=== PATIENT | male | born 1980 | race Caucasian/White ===

== ENCOUNTER 2020-02-27 06:34 | Emergency (ER) | payer BC ==
[~2020-02-27] VITALS: Ht 167.6 cm; Wt 79.4 kg
[2020-02-27 06:38] VITALS: BP 167/96
--- NOTE | 2020-02-27 06:49 | NUR ---
39 Y/O MALE C/O SINCE LAST NIGHT FELT CONSTANT MID STERNAL CHEST PRESSURE PAIN 10/17; NO OTC MEDS TAKE PRIOR TO ED ARRIVAL; SUBJECTIVE SOB; -N/V/D; BS 290 PMH: DM/HTN/HIGH CHOLESTEROL NKA
--- NOTE | 2020-02-27 06:49 | NUR ---
PT AMBULATED TO BED 7 WITH STEADY GAIT
--- NOTE | 2020-02-27 07:00 | NUR ---
EKG PERFORMED AT BEDSIDE
--- NOTE | 2020-02-27 07:01 | NUR ---
EMT AT BEDSIDE DOING EKG
--- NOTE | 2020-02-27 07:07 | NUR ---
Pt report given to italo yang. Transfer of care at this time.
[2020-02-27 07:55] VITALS: BP 153/96
--- NOTE | 2020-02-27 07:55 | NUR ---
Patient discharged with v/s stable. Written and verbal after care instructions given and explained regarding nonspecific cp. Patient alert, oriented and verbalized understanding of instructions. Ambulatory with steady gait. All questions addressed prior to discharge. ID band removed. Patient advised to follow up with PMD. Rx of motrin given. Patient educated on indication of medication including possible reaction and side effects. Opportunity to ask questions provided and answered. pt instructed that ekg was wnl
== END 2020-02-27 07:55 | disposition home or self-care (01) ==
LOC: MED 06:34
DX: R07.9 Chest pain, unspecified (principal); E11.9 Type 2 diabetes mellitus without complications; I10 Essential (primary) hypertension; E78.00 Pure hypercholesterolemia, unspecified
CPT/HCPCS: 93005; 99283

== ENCOUNTER 2021-10-18 13:23 | Emergency (ER) | payer SELFPAY ==
[~2021-10-18] VITALS: Ht 167.6 cm; Wt 81.6 kg
[2021-10-18 13:26] VITALS: BP 175/120
[2021-10-18] MEDS ORDERED: ENALAPRILAT 2.5 MG/2 ML VIAL IVP ONE (13:30)
[2021-10-18] MEDS ORDERED: NACL 0.9% 1,000 ML IV ONE (13:30)
--- NOTE | 2021-10-18 13:42 | NUR ---
Patient ambulated, handcuffed, accompanied by PD to bed 04.
--- NOTE | 2021-10-18 13:52 | NUR ---
41yo m bib [place] [facility] c/o elevated bp and hyperglycemia. Patient A&Ox4, ambulatory, reports feeling tired, denies any other symptoms. Denies dysuria, urinary symptoms, abdominal pain, dizziness, blurry vision, headache. Pt states that he last took his lisinopril yesterday and lantus 2 days ago. Denies medications prior to arrival. Bed locked in lowest position, side rails x 2. bs in triage: 407 pmh: hypothyroidism, htn, dm meds: levothyroxine, lisinopril, lantus nka
[2021-10-18 14:08] VITALS: BP 118/82
--- NOTE | 2021-10-18 14:09 | NUR ---
BP 119/82 [facility] 341; Dr. Pacheco made aware; OK to discharge to PD.
--- NOTE | 2021-10-18 14:10 | NUR ---
Patient discharged with v/s stable. Written and verbal after care instructions given and explained. Patient verbalized understanding. Ambulatory with steady gait accompanied by Customer Care Professional. All questions addressed prior to discharge. Advised to follow up with PMD.
== END 2021-10-18 14:10 ==
LOC: MED 13:23
DX: I10 Essential (primary) hypertension (principal); E11.65 Type 2 diabetes mellitus with hyperglycemia; Z02.89 Encounter for other administrative examinations
CPT/HCPCS: 96361; 96374; 99283; J3490; J7030

== ENCOUNTER 2024-05-06 10:16 | Emergency (ER) | payer BC ==
[~2024-05-06] VITALS: Ht 167.6 cm; Wt 82.6 kg
[2024-05-06 10:28] VITALS: BP 162/96; PULSE 63; RESP 16; TEMP 98.3; O2SAT 94
[2024-05-06 11:00] VITALS: O2SAT 94
[2024-05-06] MEDS: ONDANSETRON 4 MG/2 ML VIAL IVP ONE (11:07)
[2024-05-06 11:26] LABS: BASOPHILS % (AUTO) 0.5 % (0.0-2.0); EOSINOPHILS # (AUTO) 0.1 K/uL (0-0.4); EOSINOPHILS % (AUTO) 1.3 % (0.0-4.0); HEMATOCRIT 38.9 % (36-52); HEMOGLOBIN 13.1 g/dL (12.0-18.0); LYMPHOCYTES # (AUTO) 1.2 K/uL (2.0-11.5); LYMPHOCYTES % (AUTO) 27.7 % (20.5-51.1); MEAN CORPUSCULAR HEMOGLOBIN 29 pg (27-31); MEAN CORPUSCULAR HGB CONC 34 g/dL (33-37); MEAN CORPUSCULAR VOLUME 86.3 fL (80-94); MONOCYTES # (AUTO) 0.4 K/uL (0.8-1.0); MONOCYTES % (AUTO) 9.6 % (1.7-9.3); NEUTROPHILS # (AUTO) 2.6 K/uL (1.8-7.7); NEUTROPHILS % (AUTO) 60.9 % (42.2-75.2); PLATELET COUNT (AUTO) 144 K/uL (140-450); RED CELL DISTRIBUTION WIDTH 15.5 % (11.6-13.7); WHITE BLOOD COUNT (AUTO) 4.3 K/uL (4.8-10.8)
[2024-05-06 11:36] LABS: ANION GAP 6.2 (8-16); CALCIUM 8.9 mg/dL (8.5-10.1); CARBON DIOXIDE 30.5 mmol/L (21-32); CREATININE 0.9 mg/dL (0.6-1.3); POTASSIUM 3.7 mmol/L (3.5-5.1)
[2024-05-06 11:39] LABS: ALBUMIN 3.2 g/dL (3.4-5.0); BILIRUBIN,DIRECT 0.1 mg/dL (0.0-0.3); TOTAL BILIRUBIN 0.5 mg/dL (0.0-1.0); TOTAL PROTEIN, SERUM 6.3 g/dL (6.4-8.2)
[2024-05-06] MEDS ORDERED: METR-435 PO (13:55)
[2024-05-06] MEDS ORDERED: CIPR500T4 PO (13:55)
[2024-05-06 14:05] VITALS: BP 162/96; PULSE 63; RESP 16; TEMP 98.3; O2SAT 94
== END 2024-05-06 14:06 | disposition home or self-care (01) ==
LOC: MED 10:16
DX: K52.9 Noninfective gastroenteritis and colitis, unspecified (principal); E11.9 Type 2 diabetes mellitus without complications; I10 Essential (primary) hypertension; E03.9 Hypothyroidism, unspecified; Z79.899 Other long term (current) drug therapy; Z90.49 Acquired absence of other specified parts of digestive tract
CPT/HCPCS: 36415; 74177; 80048; 80076; 83690; 85025; 96374; 99285; J2405; Q9967